=== PATIENT | male | born 1935 | race Caucasian/White ===

== ENCOUNTER 2017-10-18 20:28 | Inpatient (IN) | payer MEDICARE ==
[~2017-10-18] VITALS: Ht 175.3 cm; Wt 86.2 kg
[~2017-10-18 20:28] MED LIST: ALLO100T30 PO; BICA50TA PO; ENZA40CA PO; LOSA100T6 PO; METO50TA82 PO
[2017-10-18] MEDS ORDERED: PREDNISO (20:42)
[2017-10-18] MEDS ORDERED: SODIUM CHLORIDE FLUSH 10ML SYR IVF ONE (21:00)
[2017-10-18] MEDS ORDERED: THIAMINE 100MG TABLET ONE (21:27)
[2017-10-18 21:31] LABS: ASPARTATE AMINO TRANSFERASE 23 U/L (15-37); BLOOD UREA NITROGEN 39 mg/dL (7-18)
[2017-10-18 21:44] LABS: HEMATOCRIT 36.2 % (39.2-51.8); HEMOGLOBIN 12.1 g/dL (13.7-18.0); IS PT STATUS REG ER OR PRE ER? YES; WHITE BLOOD COUNT 4.6 x10^3/uL (3.4-10)
[2017-10-18 22:15] LABS: ANISOCYTOSIS 1+
[2017-10-18] MEDS ORDERED: SODIUM CHLORIDE FLUSH 10ML SYR IVF PRN (23:00)
[2017-10-18] MEDS ORDERED: SODIUM CHLORIDE 0.9% 1,000ML IVBOLUS ONE (23:00)
[2017-10-18] MEDS ORDERED: ONDANSETRON 2MG/ML, 2ML IVPush PRN (23:30)
[2017-10-18] MEDS ORDERED: POLYETHYLENE GLYCOL 17 GM PACKET PO PRN (23:30)
[2017-10-18] MEDS ORDERED: ACETAMINOPHEN 325 MG TABLET PO PRN (23:30)
[2017-10-18] MEDS ORDERED: BISACODYL 10 MG SUPP PR PRN (23:30)
[2017-10-18] MEDS: BICALUTAMIDE 50 MG TABLET PO SCH (23:30)
[2017-10-18 23:45] VITALS: BP 188/66
[2017-10-19] MEDS: HEPARIN 5,000 UNITS/ML, 1ML SQ SCH ×4 (00:57→22:49)
[2017-10-19] MEDS: NS + 20MEQ KCL 1,000 ML IV SCH ×2 (00:57→09:00)
[2017-10-19 03:00] VITALS: BP 160/66
[2017-10-19 05:22] LABS: HEMATOCRIT 31.4 % (39.2-51.8); HEMOGLOBIN 10.8 g/dL (13.7-18.0); WHITE BLOOD COUNT 4.2 x10^3/uL (3.4-10)
[2017-10-19 05:32] LABS: BLOOD UREA NITROGEN 34 mg/dL (7-18)
[2017-10-19 05:37] LABS: ASPARTATE AMINO TRANSFERASE 21 U/L (15-37)
[2017-10-19 07:52] VITALS: BP 154/58
[2017-10-19] MEDS: LOSARTAN 50MG TABLET PO SCH (08:01)
[2017-10-19] MEDS: SENNA/DOCUSATE TABLET PO SCH (08:01)
[2017-10-19] MEDS: ALLOPURINOL 100 MG TABLET PO SCH (08:02)
[2017-10-19] MEDS: FOLIC ACID 1 MG TABLET PO SCH (08:02)
[2017-10-19] MEDS: METOPROLOL TARTRATE 50 MG TABLET PO SCH (08:02)
[2017-10-19] MEDS: ENZALUTAMIDE 160 MG HOMEMEDPO SCH (09:00)
[2017-10-19] MEDS ORDERED: POTASSIUM CHLORIDE 20 MEQ TAB.ER.PRT PO ONE (10:30)
[2017-10-19] MEDS: SODIUM CHLORIDE 0.9% 1,000 ML IV SCH ×2 (11:29→22:49)
[2017-10-19 13:58] VITALS: BP 158/60
[2017-10-19 20:30] VITALS: BP 169/58
[2017-10-19] MEDS: BICALUTAMIDE 50 MG TABLET PO SCH (20:35)
[2017-10-20 02:52] VITALS: BP 167/56
[2017-10-20 05:56] LABS: HEMATOCRIT 30.4 % (39.2-51.8); HEMOGLOBIN 10.3 g/dL (13.7-18.0); WHITE BLOOD COUNT 3.6 x10^3/uL (3.4-10)
[2017-10-20 06:06] LABS: BLOOD UREA NITROGEN 21 mg/dL (7-18)
[2017-10-20] MEDS: SODIUM CHLORIDE 0.9% 1,000 ML IV SCH (06:26)
[2017-10-20] MEDS: ENZALUTAMIDE 160 MG HOMEMEDPO SCH (09:00)
[2017-10-20 09:23] VITALS: BP 144/56
[2017-10-20] MEDS: FOLIC ACID 1 MG TABLET PO SCH (09:27)
[2017-10-20] MEDS: METOPROLOL TARTRATE 50 MG TABLET PO SCH (09:27)
[2017-10-20] MEDS: ALLOPURINOL 100 MG TABLET PO SCH (09:27)
[2017-10-20] MEDS: SENNA/DOCUSATE TABLET PO SCH (09:27)
[2017-10-20] MEDS: LOSARTAN 50MG TABLET PO SCH (09:28)
[2017-10-20] MEDS: HEPARIN 5,000 UNITS/ML, 1ML SQ SCH ×2 (09:28→17:27)
[2017-10-20] MEDS ORDERED: POTASSIUM CHLORIDE 20 MEQ TAB.ER.PRT PO ONE (12:00)
[2017-10-20] MEDS: LACTATED RINGERS 1,000 ML IV SCH (12:30)
[2017-10-20 14:00] VITALS: BP 162/63
[2017-10-20 18:59] VITALS: BP 164/67
[2017-10-20] MEDS: BICALUTAMIDE 50 MG TABLET PO SCH (20:38)
[2017-10-21] MEDS: LACTATED RINGERS 1,000 ML IV SCH (01:46)
[2017-10-21] MEDS: HEPARIN 5,000 UNITS/ML, 1ML SQ SCH ×2 (01:47→09:54)
[2017-10-21 03:13] VITALS: BP 169/60
[2017-10-21 05:48] LABS: HEMATOCRIT 30.5 % (39.2-51.8); HEMOGLOBIN 10.4 g/dL (13.7-18.0); WHITE BLOOD COUNT 3.3 x10^3/uL (3.4-10)
[2017-10-21 06:04] LABS: BLOOD UREA NITROGEN 17 mg/dL (7-18)
[2017-10-21 07:40] VITALS: BP 194/64
[2017-10-21] MEDS: METOPROLOL TARTRATE 50 MG TABLET PO SCH (08:22)
[2017-10-21] MEDS: FOLIC ACID 1 MG TABLET PO SCH (08:23)
[2017-10-21] MEDS: SENNA/DOCUSATE TABLET PO SCH (08:23)
[2017-10-21] MEDS: LOSARTAN 50MG TABLET PO SCH (08:24)
[2017-10-21] MEDS: ALLOPURINOL 100 MG TABLET PO SCH (08:24)
[2017-10-21 08:25] VITALS: BP 172/69
[2017-10-21] MEDS: ENZALUTAMIDE 160 MG HOMEMEDPO SCH (09:00)
[2017-10-21 12:49] VITALS: BP 145/71
[2017-10-21] MEDS ORDERED: FLU VACC QS2017-18 (36MOS+) UP/PF 0.5 ML IM-VACC ONE (15:30)
[2017-10-21 16:02] VITALS: BP 148/60
== END 2017-10-21 17:15 | DRG 640 ==
LOC: ED 21:34 → EDIP 22:39 → 4NOR 23:36
PROVIDERS: ADMIT Hospitalist; ATTEND Hospitalist
DX: E87.6 Hypokalemia (principal); N17.0 Acute kidney failure with tubular necrosis; E86.0 Dehydration; C79.51 Secondary malignant neoplasm of bone; I71.2 Thoracic aortic aneurysm, without rupture; E44.1 Mild protein-calorie malnutrition; J98.11 Atelectasis; Z68.1 Body mass index [BMI] 19.9 or less, adult; D50.9 Iron deficiency anemia, unspecified; I10 Essential (primary) hypertension; R62.7 Adult failure to thrive; Z66 Do not resuscitate; W18.30XA Fall on same level, unspecified, initial encounter; K59.00 Constipation, unspecified; Y93.89 Activity, other specified; Y92.89 Other specified places as the place of occurrence of the external cause; Y99.8 Other external cause status; Z82.49 Family history of ischemic heart disease and other diseases of the circulatory system; Z85.46 Personal history of malignant neoplasm of prostate; Z98.41 Cataract extraction status, right eye; Z98.42 Cataract extraction status, left eye; Z23 Encounter for immunization; Z90.49 Acquired absence of other specified parts of digestive tract
CPT/HCPCS: 36415; 70450; 71010; 80048; 80053; 81001; 82607; 82746; 83735; 84439; 84443; 84484; 85025; 87086; 90686; 93005; 99285; J1644; J3480; J7030; J7120

== ENCOUNTER 2018-09-01 11:58 | Day surgery (SDC) | payer MEDICARE ==
[~2018-09-01] VITALS: Ht 170.2 cm; Wt 86.3 kg
[~2018-09-01 11:58] MED LIST changes: -BICA50TA PO; +BICA50TA5 PO; -LOSA100T6 PO; +LOSA100T7 PO; +PREDNISO
[2018-09-01 12:29] VITALS: BP 134/64
[2018-09-01] MEDS ORDERED: LIDOCAINE-MPF 1%, 5ML ONE (12:40)
== END 2018-09-01 13:30 | disposition home or self-care (01) ==
LOC: CACL 11:58
PROVIDERS: ATTEND Internal Medicine Cardiovascular Disease
DX: R55 Syncope and collapse (principal); R42 Dizziness and giddiness; I10 Essential (primary) hypertension; E03.9 Hypothyroidism, unspecified; I35.1 Nonrheumatic aortic (valve) insufficiency; I71.2 Thoracic aortic aneurysm, without rupture; Z79.82 Long term (current) use of aspirin; Z98.890 Other specified postprocedural states; Z79.899 Other long term (current) drug therapy
CPT/HCPCS: 33282; C1764